=== PATIENT | male | born 1950 | race Caucasian/White ===

== ENCOUNTER 2017-02-09 03:35 | Emergency (ER) | payer MEDICARE, OTHER ==
[~2017-02-09] VITALS: Ht 188 cm; Wt 88.5 kg
[2017-02-09 03:35] VITALS: BP 151/97
--- NOTE | 2017-02-09 04:20 | PHYS DOC ---
Past History Past Medical History: A-Fib, Diabetes, High Cholesterol, Hypertension Past Surgical History: Knee Replacement Alcohol Use: Occasionally Drug Use: None Adult General Chief Complaint Chief Complaint: Palpitations HPI HPI Patient is a 66 year old M who presents with palpitations. Patient states he is paroxysmal A. fib at approximately 34 years ago when there in [place] he had episode where he had an irregular heartbeat that lasted for approximately 15-20 minutes and the time he got to the emergency room it had resolved. She stated the time he was placed on no blood thinners or rate controlling medication. She moved to [place] and was evaluated by a specialist here who placed him on metoprolol for palpitations potentially when he swallows. Patient stated he was sleeping and woke up with a fast irregular heartbeat. By the time he was checking into the emergency room after his drove from symptoms had resolved. Patient is currently asymptomatic in the emergency room. Patient denies any chest pain or shortness of breath. Patient denies any fevers. Patient denies any nausea/vomiting/diarrhea. Patient has no history of NV or stents or bypass surgery. Pertinent exam findings: Heart was regular rate and rhythm without any murmurs Lungs are clear to auscultation bilaterally without crackles wheezes or rales ED course: Patient was seen and evaluated CBC, CMP, troponin, EKG, chest x-ray were ordered 0505: Patient was reevaluated who is asymptomatic with no chest pain or shortness of breath and no signs or symptoms of palpitations. Patient elected to go home. Patient states he will follow up with his PCP for further evaluation and management. Pertinent results: 0355: EKG shows normal sinus rhythm rate of 90 no STEMI Chest x-ray 2 view NAD Troponin negative MDM: After reviewing the chart, CC/HPI/PMH, physical exam, [lab results], [ radiological results], do not believe the patient having acute NV (HEART score = 3), PE (Well's score =0), and low suspicion for acute thoracic aortic dissection. Based on the patient's cardiac risk factors and history of present illness I believe the patient can be discharged home and follow-up with his PCP for an outpatient cardiac workup. Patient is comfortable this plan and does not want to be admitted to the hospital. Patient is stable for discharge. Additional verbal discharge instructions were provided to the patient and that if symptoms get worse or any new symptoms arise that are worrisome to the patient he is to return to the emergency room immediately Review of Systems Review of Systems GEN: Denies fevers, chills, sweats HEENT: Denies blurred vision, sore throat CV: Palpitations RESP: Denies shortness of air, cough GI: Denies n/v/d NEURO: Denies confusion, dizziness MSK: Denies weakness, joint pain/swelling Physical Exam Physical Exam GEN.: No apparent distress. Alert and oriented. HEENT: Head is normocephalic, atraumatic NECK: Supple. LUNGS: CTAB. HEART: RRR, S1, S2 present. Peripheral pulses intact ABDOMEN: Soft, nontender. Positive bowel sounds. EXTREMITIES: Without any cyanosis. NEUROLOGIC: Normal speech, normal tone PSYCHIATRIC: Normal affect, normal mood. SKIN: No ulcerations Current Patient Data Vital Signs Vital Signs Date Time Temp Pulse Resp B/P (MAP) Pulse Ox O2 Delivery O2 Flow Rate FiO2 02/09/17 03:35 97.5 92 20 97 Room Air Lab Results Laboratory Tests Test 02/09/17 04:05 White Blood Count 9.3 x10^3/uL Red Blood Count 4.86 x10^6/uL Hemoglobin 15.3 g/dL Hematocrit 44.4 % Mean Corpuscular Volume 91 fL Mean Corpuscular Hemoglobin 31 pg Mean Corpuscular Hemoglobin Concent 34 g/dL Red Cell Distribution Width 13.6 % Platelet Count 225 x10^3/uL Neutrophils (%) (Auto) 60 % Lymphocytes (%) (Auto) 21 % Monocytes (%) (Auto) 11 % Eosinophils (%) (Auto) 7 % Basophils (%) (Auto) 1 % Neutrophils # (Auto) 5.6 x10^3uL Lymphocytes # (Auto) 1.9 x10^3/uL Monocytes # (Auto) 1.1 x10^3/uL Eosinophils # (Auto) 0.7 x10^3/uL Basophils # (Auto) 0.1 x10^3/uL Sodium Level 145 mmol/L Potassium Level 4.2 mmol/L Chloride Level 109 mmol/L Carbon Dioxide Level 26 mmol/L Anion Gap 10 Blood Urea Nitrogen 24 mg/dL Creatinine 1.1 mg/dL Estimated GFR (Cockcroft-Gault) 67.0 BUN/Creatinine Ratio 22 Glucose Level 151 mg/dL Calcium Level 8.9 mg/dL Total Bilirubin 0.4 mg/dL Aspartate Amino Transf (AST/SGOT) 16 U/L Alanine Aminotransferase (ALT/SGPT) 33 U/L Alkaline Phosphatase 98 U/L Troponin I Quantitative < 0.017 ng/mL Total Protein 7.0 g/dL Albumin 3.8 g/dL Albumin/Globulin Ratio 1.2 EKG EKG EKG shows normal sinus rhythm rate of 90 no STEMI [] Radiology/Procedures Radiology/Procedures Two-view chest x-ray: NAD [] Course & Med Decision Making Course & Med Decision Making Pertinent Labs and Imaging studies reviewed. (See chart for details) [] Dragon Disclaimer Dragon Disclaimer This chart was dictated in whole or in part using Voice Recognition software in a busy, high-work load, and often noisy Emergency Department environment. It may contain unintended and wholly unrecognized errors or omissions. Departure Departure: Impression: Primary Impression: Palpitations Disposition: 01 HOME, SELF-CARE Condition: IMPROVED Patient Instructions: Palpitations Additional Instructions: These follow-up with her family doctor next 1-2 days and discussed the possibility of foreign a Holter monitor or an event monitor and the potential need for blood thinners ANTOLIN LOMAX DO Feb 09, 2017 04:20
[2017-02-09 04:27] LABS: BASO # 0.1 x10^3/uL (0.0-0.2); BASO % 1 % (0-3); EOS # 0.7 x10^3/uL (0.0-0.7); EOS % 7 % (0-3); HEMATOCRIT 44.4 % (39.0-53.0); HEMOGLOBIN 15.3 g/dL (13.0-17.5); LYMPH # 1.9 x10^3/uL (1.0-4.8); LYMPH % 21 % (24-48); MEAN CORPUSCULAR HEMOGLOBIN 31 pg (25-35); MEAN CORPUSCULAR HGB CONC 34 g/dL (31-37); MEAN CORPUSCULAR VOLUME 91 fL (79-100); MONO # 1.1 x10^3/uL (0.0-1.1); MONO % 11 % (0-9); NEUT # 5.6 x10^3uL (1.8-7.7); NEUT % 60 % (31-73); PLATELET COUNT 225 x10^3/uL (140-400); RED BLOOD COUNT 4.86 x10^6/uL (4.30-5.70); RED CELL DISTRIBUTION WIDTH 13.6 % (11.5-14.5); WHITE BLOOD COUNT 9.3 x10^3/uL (4.0-11.0)
--- NOTE | 2017-02-09 04:40 | EKG ---
[address] [address] Test Date: 2017-02-09 Test Time: 03:46:54 Pat Name: SILVER RAYMOND Department: Room: Gender: M [employer]: NADIA : 1950 Requested By: ANTOLIN LOMAX Order Number: [id number] Reading MD: Marquis Lau Measurements Intervals [place] Rate: 90 P: 24 PA: 188 QRS: -11 QRSD: 84 T: 9 QT: 352 QTc: 435 Interpretive Statements SINUS RHYTHM LEFTWARD AXIS NONSPECIFIC ST-T WAVE CHANGES. RI6.01 Unconfirmed report No previous ECG available for comparison Electronically Signed On 02-10-2017 9:56:56 CDT by Marquis Lau
[2017-02-09 04:55] LABS: ALBUMIN 3.8 g/dL (3.4-5.0); ALBUMIN/GLOBULIN RATIO 1.2 (1.0-1.7); CALCIUM 8.9 mg/dL (8.5-10.1); CREATININE 1.1 mg/dL (0.7-1.3); POTASSIUM 4.2 mmol/L (3.5-5.1); TOTAL BILIRUBIN 0.4 mg/dL (0.2-1.0)
--- NOTE | 2017-02-09 07:09 | RAD ---
Chest, 2 views, 02/09/2017: History: Palpitations The heart size and pulmonary vascularity are normal. No pulmonary infiltrates are seen. There is no evidence of pleural fluid. Mild spurring is present in the spine. IMPRESSION: No acute cardiopulmonary abnormality is detected.
== END 2017-02-09 05:10 | disposition home or self-care (01) ==
LOC: ER 03:35
DX: R00.2 Palpitations (principal); I49.9 Cardiac arrhythmia, unspecified; E11.9 Type 2 diabetes mellitus without complications; E78.00 Pure hypercholesterolemia, unspecified; I10 Essential (primary) hypertension; I48.91 Unspecified atrial fibrillation
CPT/HCPCS: 36415; 71020; 80053; 84484; 85027; 93005; 99285-25